=== PATIENT | male | born 1955 | race Caucasian/White ===

== ENCOUNTER 2018-04-27 18:43 | Emergency (ER) | payer MEDICAID, OTHER ==
[~2018-04-27] VITALS: Ht 182.9 cm; Wt 68.0 kg
--- NOTE | 2018-04-27 18:43 | NUR ---
PT BIBA TO BED 2 AT THIS TIME.
[2018-04-27 18:45] VITALS: BP 115/110
--- NOTE | 2018-04-27 18:50 | NUR ---
62 YO MALE BIB EMS FROM FIELD FOR URINARY RETENTION HAD PARK IN PLACE AND IT CAME OUT LAST NIGHT.PATIENT STATES PAIN OF 2/10 AT THIS TIME. PATIENT POSITIONED FOR COMFORT; HOB ELEVATED; BEDRAILS UP X2; BED DOWN. ER MD MADE AWARE OF PT STATUS.
--- NOTE | 2018-04-27 19:07 | NUR ---
ASSUMED CARE OF PT FROM SYD SPENCE
--- NOTE | 2018-04-27 19:09 | NUR ---
Pt report given to RONALDO VELARDE. Transfer of care at this time.
--- NOTE | 2018-04-27 19:16 | NUR ---
Dr. Bahena evaluating patient at bedside.
[2018-04-27] MEDS ORDERED: CIPROFLOXACIN 250 MG TAB PO ONE (19:20)
--- NOTE | 2018-04-27 19:39 | NUR ---
PT GIVEN LEG BAG FOR PARK. TOLERATED WELL.
[2018-04-27 19:40] VITALS: BP 109/95
== END 2018-04-27 19:40 | disposition home or self-care (01) ==
LOC: MED 18:43
DX: T83.098A Other mechanical complication of other urinary catheter, initial encounter (principal); N39.0 Urinary tract infection, site not specified; F17.210 Nicotine dependence, cigarettes, uncomplicated; Z87.442 Personal history of urinary calculi; Z88.0 Allergy status to penicillin; Z98.890 Other specified postprocedural states; Z59.0 Homelessness
CPT/HCPCS: 51702; 81002; 99284

== ENCOUNTER 2018-05-04 11:21 | Emergency (ER) | payer OTHER ==
[~2018-05-04] VITALS: Ht 182.9 cm; Wt 68.0 kg
[2018-05-04 11:26] VITALS: BP 146/112
--- NOTE | 2018-05-04 11:32 | NUR ---
PT AMBULATED TO ER BED 01
--- NOTE | 2018-05-04 11:35 | NUR ---
BIB SELF FOR URINARY CATHETER TO BE PUT BACK IN. PT STATES HE HAS A KIDNEY STONE BLOCKAGE AND NEEDS SURGERY BUT HASN'T GOT ONE YET. PT STATES HE WAS GOING UP THE STAIRS LAST NIGHT WHEN HIS PARK CATHETER WAS PULLED OUT. NO INJURY OR BLEEDING NOTED TO THE PENIS AT THIS TIME. DOCTOR AWARE OF PATIENT'S STATUS
--- NOTE | 2018-05-04 13:19 | NUR ---
Patient discharged with v/s stable. Written and verbal after care instructions given and explained. Patient verbalized understanding. Ambulatory with steady gait. All questions addressed prior to discharge. Advised to follow up with PMD.
== END 2018-05-04 13:19 | disposition home or self-care (01) ==
LOC: MED 11:21
DX: R33.9 Retention of urine, unspecified (principal); F17.200 Nicotine dependence, unspecified, uncomplicated; Z87.442 Personal history of urinary calculi; Z88.0 Allergy status to penicillin
CPT/HCPCS: 51702; 99284

== ENCOUNTER 2018-05-17 19:25 | Emergency (ER) | payer OTHER ==
[~2018-05-17] VITALS: Ht 182.9 cm; Wt 63.5 kg
[2018-05-17 20:30] VITALS: BP 134/111
--- NOTE | 2018-05-17 20:33 | NUR ---
PT AMBULATED TO LOBBY WITH VSS.
--- NOTE | 2018-05-17 20:51 | NUR ---
PT TO ER BED 11
--- NOTE | 2018-05-17 21:00 | NUR ---
PT TO ED WITH C/O URIANRY RETENTION. PREVIOUS HX OF PARK CATHETER INSERTION. MILD BLADDER DISTENTION NOTED. PT PLACED INTO BED, PREET FONSECA.
--- NOTE | 2018-05-17 21:25 | NUR ---
# 16 FR Sumner catheter with 10 ml utilizing sterile technique. Immediate return of 100 ml YELLOW urine noted. Bedside drainage bag placed below level of bladder. Urine sample collected and sent to lab. Pt tolerated procedure WELL.
[2018-05-17 22:47] VITALS: BP 128/99
--- NOTE | 2018-05-17 22:48 | NUR ---
Patient discharged with v/s stable. Written and verbal after care instructions given and explained. Patient alert, oriented and verbalized understanding of instructions. Ambulatory with steady gait. All questions addressed prior to discharge. ID band removed. Patient advised to follow up with PMD. Rx of MACROBID, IBUPROFEN given. Patient educated on indication of medication including possible reaction and side effects. Opportunity to ask questions provided and answered.
[2018-05-18 01:16] LABS: APPEARANCE,URINE CLOUDY (CLEAR); COLOR,URINE YELLOW (YELLOW)
[2018-05-18 01:17] LABS: BILIRUBIN,URINE NEGATIVE (NEGATIVE); BLOOD, URINE 3+ (NEGATIVE); LEUKOCYTE ESTERASE ,URINE 2+ (NEGATIVE); NITRITE, URINE POSITIVE (NEGATIVE); UGLUCOSE NEGATIVE (NEGATIVE)
[2018-05-18 01:18] LABS: RBC,URINE TOO NUMEROUS TO COUN /HPF (0-5); WBC,URINE TOO MANY TO COUNT /HPF (0-5)
== END 2018-05-17 22:48 | disposition home or self-care (01) ==
LOC: MED 19:25
DX: N39.0 Urinary tract infection, site not specified (principal); Z88.0 Allergy status to penicillin; Z87.442 Personal history of urinary calculi
CPT/HCPCS: 51702; 81001; 87086; 87186; 99284

== ENCOUNTER 2018-06-04 22:00 | Emergency (ER) | payer OTHER ==
[~2018-06-04] VITALS: Ht 182.9 cm; Wt 74.4 kg
[2018-06-04 22:20] VITALS: BP 146/109
--- NOTE | 2018-06-04 23:10 | NUR ---
PATIENT PRESENTS TO ED WITH URINARY RETENTION DUE TO HIS CATHETER PULLED OUT. DENIES N/V/D; SKIN IS PINK/WARM/DRY; AAOX4 WITH EVEN AND STEADY GAIT; LUNGS CLEAR BL; HR EVEN AND REGULAR; PT DENIES ANY FEVER, CP, SOB, OR COUGH AT THIS TIME; PATIENT STATES PAIN OF 10/10 AT THIS TIME; VSS; PATIENT POSITIONED FOR COMFORT; HOB ELEVATED; BEDRAILS UP X2; BED DOWN. ER MD MADE AWARE OF PT STATUS.
--- NOTE | 2018-06-04 23:19 | NUR ---
Sumner catheter inserted, steral technique applied.Patient discharged with v/s stable. Written and verbal after care instructions given and explained. Patient verbalized understanding. Ambulatory with steady gait. All questions addressed prior to discharge. Advised to follow up with PMD.
[2018-06-04 23:20] VITALS: BP 122/88
== END 2018-06-04 23:20 | disposition home or self-care (01) ==
LOC: MED 22:00
DX: T83.018A Breakdown (mechanical) of other urinary catheter, initial encounter (principal); F17.200 Nicotine dependence, unspecified, uncomplicated; Z88.0 Allergy status to penicillin; Z87.442 Personal history of urinary calculi; Y73.8 Miscellaneous gastroenterology and urology devices associated with adverse incidents, not elsewhere classified
CPT/HCPCS: 51702; 99284

== ENCOUNTER 2018-06-30 18:39 | Emergency (ER) | payer OTHER ==
[~2018-06-30] VITALS: Ht 182.9 cm; Wt 68.0 kg
[2018-06-30 18:50] VITALS: BP 151/95
--- NOTE | 2018-06-30 18:56 | NUR ---
PT ANB TO BED 6
--- NOTE | 2018-06-30 19:07 | NUR ---
63 YO M BIB SELF PRESENTS TO THE ED C/O URINARY RETENTION X 1 DAY. PT STATES HE HAS BEEN UNABLE TO VOID SINCE LAST NIGHT. PT REPORTS HE HAS NEEDED CATHETER INSERTION IN THE PAST FOR SAME ISSUE. PT REPORTS 10/10 SUPRAPUBIC DISCOMFORT. MILD BLADDER DISTENTION NOTED. SUPRAPUBIC TENDERNESS PRESENT. -- PMH: DENIES -- RX: DENIES PT CHANGED INTO GOWN AND POSITIONED FOR COMFORT. HOB ELEVATED. SIDE RAIL UP X1. BED IN LOWEST POSITION. VSS. NO APPARENT DISTRESS AT THIS TIME.
--- NOTE | 2018-06-30 20:07 | NUR ---
# 16 FR Sumner catheter with 10 ml utilizing sterile technique. Immediate return of 100 ml yellow, cloudy urine noted. Bedside drainage bag placed below level of bladder. Urine sample collected and sent to lab. Pt tolerated procedure well.
--- NOTE | 2018-06-30 20:16 | NUR ---
Dr. Sy evaluating patient at bedside.
[2018-06-30 20:36] LABS: APPEARANCE,URINE CLOUDY (CLEAR); BILIRUBIN,URINE NEGATIVE (NEGATIVE); BLOOD, URINE 3+ (NEGATIVE); COLOR,URINE YELLOW (YELLOW); LEUKOCYTE ESTERASE ,URINE 2+ (NEGATIVE); NITRITE, URINE NEGATIVE (NEGATIVE); UGLUCOSE NEGATIVE (NEGATIVE)
[2018-06-30 20:40] VITALS: BP 154/92
--- NOTE | 2018-06-30 20:40 | NUR ---
Patient discharged with v/s stable. Written and verbal after care instructions given and explained. Patient verbalized understanding. Ambulatory with steady gait. Trimble catheter draining, in place, transfered to leg bag. Teaching and demonstration provided for trimble care and leg bag. All questions addressed prior to discharge. Advised to follow up with PMD/Urologist.
[2018-06-30 20:44] LABS: WBC,URINE TOO MANY TO COUNT /HPF (0-5)
--- NOTE | 2018-07-03 17:27 | NUR ---
ADDENDUM: SPOKE TO PATIENTS SON([phone]) GAVE ME CELL # OF PATIENT TO BE REACHED. [phone]
--- NOTE | 2018-07-03 17:28 | NUR ---
ADDENDUM: URINE CULTURE RESULTS: E.COLI MDRO. REFERRED TO DR. CUNNINGHAM. CALLED PATIENT AND LEFT MESSAGE FOR NEW PRESCRIPTION/NEED PHARMACY INFO. SO CAN CALL IN PRESCRIPTION
--- NOTE | 2018-07-03 17:39 | NUR ---
ADDENDUM: LEFT MESSAGE TO PATIENT FOR NEW PRESCRIPTION. [phone]
--- NOTE | 2018-07-03 18:38 | NUR ---
ADDENDUM: LEFT MESSAGE . [phone]
== END 2018-06-30 20:40 | disposition home or self-care (01) ==
LOC: MED 18:39
DX: T83.098A Other mechanical complication of other urinary catheter, initial encounter (principal); R33.9 Retention of urine, unspecified; Z87.442 Personal history of urinary calculi; Z88.0 Allergy status to penicillin
CPT/HCPCS: 51702; 81001; 87086; 87186; 99284

== ENCOUNTER 2018-09-29 06:17 | Emergency (ER) | payer OTHER ==
[~2018-09-29] VITALS: Ht 182.9 cm; Wt 68.0 kg
[2018-09-29 06:21] VITALS: BP 141/107
--- NOTE | 2018-09-29 06:25 | NUR ---
PT AMBULATED TO BED 9.
--- NOTE | 2018-09-29 06:31 | NUR ---
63/M PRESENTS TO ED, C/O URINARY RETENTION, HAS ONLY BEEN ABLE TO URINATE VERY MINIMAL AMOUNT SINCE LAST NIGHT. REPORTS THAT PT'S INDWELLING PARK CATH FELL OFF LAST NIGHT. REPORTS CHRONIC PROBLEM SINCE DX KIDNEY STONES 01/2019. AOX4, SKIN NORMAL WARM AND DRY, RR EVEN AND UNLABORED, IN MODERATE AMOUNT OF DISTRESS WITH MILD RESTLESSNESS AND FACIAL GRIMACING. DR MACARIO MADE AWARE HX KIDNEY STONES; DENIES PROSTATE PROBLEM; DENIES RX OR OTC.
--- NOTE | 2018-09-29 06:40 | NUR ---
URI#16 FR Sumner catheter inserted utilizing sterile technique. Immediate return of 400ml cloudy yellow urine noted. Bedside drainage bag placed below level of bladder, replaced with leg bag. Urine sample collected, urine dip performed and shown to Dr Hong by EMT. Pt tolerated procedure.
--- NOTE | 2018-09-29 06:48 | NUR ---
DR MACARIO AT BEDSIDE
--- NOTE | 2018-09-29 07:00 | NUR ---
PT SENT HOME WITH PARK WITH LEG BAG WITH EDUCATION.
[2018-09-29 07:02] VITALS: BP 160/105
== END 2018-09-29 07:05 | disposition home or self-care (01) ==
LOC: MED 06:17
DX: T83.098A Other mechanical complication of other urinary catheter, initial encounter (principal); N39.0 Urinary tract infection, site not specified; F17.210 Nicotine dependence, cigarettes, uncomplicated; Z88.0 Allergy status to penicillin; Z87.442 Personal history of urinary calculi; Y84.6 Urinary catheterization as the cause of abnormal reaction of the patient, or of later complication, without mention of misadventure at the time of the procedure; Y92.89 Other specified places as the place of occurrence of the external cause
CPT/HCPCS: 51702; 81002; 99284; C1758

== ENCOUNTER 2018-10-08 08:08 | Emergency (ER) | payer OTHER ==
[~2018-10-08] VITALS: Ht 182.9 cm; Wt 68.0 kg
[2018-10-08 08:14] VITALS: BP 146/109
--- NOTE | 2018-10-08 08:21 | NUR ---
PT AMBULATED TO ER BED 09
--- NOTE | 2018-10-08 08:28 | NUR ---
PT CAME IN TO HAVE HIS PARK CATHETER REPLACED, STATES HIS CAME OUT LAST NIGHT. PT STATES HE HAS HAD AN INDWELLING CATHETER SINCE JANUARY 2018 BECAUSE OF KIDNEY STONES, AND HE IS SUPPOSED TO HAVE SURGERY TO RESOLVE THE ISSUE BUT HASNT YET. DENIES PAIN/N/V/FEVER. PT STATES HE IS UNABLE TO URINATE ON HIS OWN AT THIS TIME. BED IN LOW POSITION, SIDE RAIL UP X1. PENDING ERMD EVALUATION.
--- NOTE | 2018-10-08 08:50 | NUR ---
DR. BRENNAN AT BEDSIDE EVALUATING PT
--- NOTE | 2018-10-08 09:00 | NUR ---
# 16 FR Sumner catheter inserted utilizing sterile technique. Immediate return of 200 ml yellow urine noted. Leg bag applied and placed on L thigh, below level of bladder. Pt tolerated procedure well.
[2018-10-08 09:16] VITALS: BP 146/109
--- NOTE | 2018-10-08 09:17 | NUR ---
Patient discharged with v/s stable. Written and verbal after care instructions given and explained. Patient verbalized understanding. Ambulatory with steady gait. All questions addressed prior to discharge. Advised to follow up with PMD. APPLIED URINARY BAG TO PT L LEG
== END 2018-10-08 09:17 | disposition home or self-care (01) ==
LOC: MED 08:08
DX: T83.028A Displacement of other urinary catheter, initial encounter (principal); Z88.0 Allergy status to penicillin; Z87.442 Personal history of urinary calculi; Y83.8 Other surgical procedures as the cause of abnormal reaction of the patient, or of later complication, without mention of misadventure at the time of the procedure; Y92.89 Other specified places as the place of occurrence of the external cause
CPT/HCPCS: 51702; 99284

== ENCOUNTER 2018-10-25 06:57 | Emergency (ER) | payer OTHER ==
[~2018-10-25] VITALS: Ht 182.9 cm; Wt 72.8 kg
[2018-10-25 07:02] VITALS: BP 143/64
--- NOTE | 2018-10-25 07:12 | NUR ---
PT AMBULATED WITH STEADY GAIT TO BED 2.
--- NOTE | 2018-10-25 07:40 | NUR ---
63 y/o BIB by self c/o of dislodged trimble catheter and urinary retention. Denies pain and injury. PMH:urinary retention and kdiney stones Rx: none Allergies:Penicillin
[2018-10-25 08:20] VITALS: BP 143/64
--- NOTE | 2018-10-25 08:22 | NUR ---
Patient discharged with v/s stable. Written and verbal after care instructions given and explained. Patient alert, oriented and verbalized understanding of instructions. Ambulatory with steady gait. All questions addressed prior to discharge. ID band removed. Patient advised to follow up with PMD. Rx of NITROFURANTOIN 100MG given. Patient educated on indication of medication including possible reaction and side effects. Opportunity to ask questions provided and answered.
== END 2018-10-25 08:22 | disposition home or self-care (01) ==
LOC: MED 06:57
DX: T83.018A Breakdown (mechanical) of other urinary catheter, initial encounter (principal); N39.0 Urinary tract infection, site not specified; N40.0 Benign prostatic hyperplasia without lower urinary tract symptoms; N21.0 Calculus in bladder; R03.0 Elevated blood-pressure reading, without diagnosis of hypertension; F17.210 Nicotine dependence, cigarettes, uncomplicated; Z87.442 Personal history of urinary calculi; Z98.890 Other specified postprocedural states; Z88.0 Allergy status to penicillin; Y84.6 Urinary catheterization as the cause of abnormal reaction of the patient, or of later complication, without mention of misadventure at the time of the procedure; Y92.89 Other specified places as the place of occurrence of the external cause
CPT/HCPCS: 51702; 81002; 99284; C1758

== ENCOUNTER 2018-11-09 02:05 | Emergency (ER) | payer OTHER ==
[~2018-11-09] VITALS: Ht 182.9 cm; Wt 68.0 kg
[2018-11-09 02:05] VITALS: BP 139/120
--- NOTE | 2018-11-09 02:05 | NUR ---
Pt ambulted from [facility] to bed 9.
--- NOTE | 2018-11-09 02:07 | NUR ---
PT BIBA C/O PARK CATHETER DISLODGEMENT AROUND 1500. PER PT HE HAS PARK CATHETER IN PLACE D/T BLADDER STONE THAT REQUIRES SURGERY. PT AWAKE AND ALERT. VSS. PAIN LEVEL 9/10, ACHING. PT UNABLE TO URINATE. ALLERGY: PENICILLIN. MED HX: BLADDER STONE. SAFETY MEASURES IN PLACE. WAITING FOR ERMD TO EVALUATE PT.
--- NOTE | 2018-11-09 02:30 | NUR ---
PT PARK CATHETER 16FR INSERTED. 10ML INSERTED IN BALLOON. TOLERATED PROCEDURE WELL. Addendum: 11/09/18 at 0308 by [email or web address] PT PARK CATHETER 16FR INSERTED. 10ML INSERTED IN BALLOON. TOLERATED PROCEDURE WELL. LEG BAG PROVIDED PER PT REQUEST.
--- NOTE | 2018-11-09 02:41 | NUR ---
Dr. Hong examining patient.
[2018-11-09 02:55] VITALS: BP 139/120
--- NOTE | 2018-11-09 02:55 | NUR ---
Patient discharged with v/s stable. Written and verbal after care instructions given and explained. Patient alert, oriented and verbalized understanding of instructions. Ambulatory with steady gait. All questions addressed prior to discharge. ID band removed. Patient advised to follow up with PMD. Rx of CIPRO WAS given. Patient educated on indication of medication including possible reaction and side effects. Opportunity to ask questions provided and answered.
== END 2018-11-09 02:55 | disposition home or self-care (01) ==
LOC: MED 02:05
DX: R33.9 Retention of urine, unspecified (principal); N39.0 Urinary tract infection, site not specified; Z88.0 Allergy status to penicillin; Z87.442 Personal history of urinary calculi
CPT/HCPCS: 51702; 81002; 87086; 99284; C1758

== ENCOUNTER 2019-11-03 19:10 | Emergency (ER) | payer OTHER ==
[~2019-11-03] VITALS: Ht 170.2 cm; Wt 77.1 kg
[2019-11-03 19:33] VITALS: BP 124/68
--- NOTE | 2019-11-03 19:33 | NUR ---
PT BIBA ALS FOR S/O DOG BITE X 2 HOURS AGO. BITES NOTED ON R FA AND BILAT LEGS NOTED. BLEEDING CONTROLLED. EDEMA NOTED. NO OBVIOUS DEFORMITY NOTED. A&O X4. PT UNABLE TO AMBULATE. VSS. HEART SOUND S1S2 PRESENT. ALLERGIES: PENICILLIN PMH: DENIES
--- NOTE | 2019-11-03 19:33 | NUR ---
ANIMAL FILLED OUT AND FAXED.
--- NOTE | 2019-11-03 19:36 | NUR ---
PT WOUNDS BEING CLEANED ON EMS GURNEY. WILL BE SENT TO LOBBY AFTER. FENTANYL 100MG IN GIVEN PRIOR TO ARRIVAL. VSS.
--- NOTE | 2019-11-03 19:43 | NUR ---
PT TAKEN TO BED 4.
[2019-11-03] MEDS ORDERED: ONDANSETRON 4 MG ODT PO ONE (20:00)
[2019-11-03] MEDS ORDERED: HYDROcodone/APAP 7.5/325 MG 1 TAB PO ONE (20:00)
[2019-11-03] MEDS ORDERED: LIDOCAINE MPF 1% 10 MG/ML VIAL INJ ONE (20:00)
[2019-11-03] MEDS ORDERED: BACITRACIN OINT 500 UNITS/GM PKT TP ONE ×4 (20:00→22:30)
--- NOTE | 2019-11-03 20:14 | NUR ---
XRAY AT BEDSIDE.
--- NOTE | 2019-11-03 20:15 | NUR ---
XR AT BEDSIDE.
--- NOTE | 2019-11-03 21:02 | NUR ---
XUAN CUELLAR AT BEDSIDE. ALCON AT BEDSIDE.
[2019-11-03] MEDS ORDERED: LIDOCAINE MPF 1% 5 ML ONE (21:11)
--- NOTE | 2019-11-03 21:12 | NUR ---
XUAN GERMAN ADMINISTRATING LIDOCAINE 1% FOR BEDISDE PROCEDURE.
[2019-11-03] MEDS ORDERED: CLINDAMYCIN 600 MG/4 ML VIAL IM ONE (21:15)
[2019-11-03] MEDS ORDERED: SULFAMETH/TRIMETH DS 800/160MG 1 TAB PO ONE (21:15)
--- NOTE | 2019-11-03 22:39 | NUR ---
CLEANED AND IRAGATED PT'S WOUNDS ON RIGHT FA A/P, LEFT LOWER LEG/ RIGHT LOWER LEG WITH BETADINE AND NS. AFTER PT'S WOUND'S WERE CLEANED AND IRAGATED PA CLOSED UP WOUNDS WITH SUTURES. I THEN APPLIED BACITRACIN AND NON-ADH BANDAGES TO PT'S WOUND'D AND THEN WRAP WITH COBAND BANDAGE. PMSC'S WERE CHECKED BEFORE AND AFTER WITHOUT INCIDENT.
--- NOTE | 2019-11-03 22:47 | NUR ---
Patient discharged with v/s stable. Written and verbal after care instructions given and explained. Patient alert, oriented and verbalized understanding of instructions. Ambulatory with steady gait. All questions addressed prior to discharge. ID band removed. Patient advised to follow up with PMD. Rx of TRAMADOL, MOTRIN, BACTRIM, CLINDAMYCIN given. Patient educated on indication of medication including possible reaction and side effects. Opportunity to ask questions provided and answered.
[2019-11-03 22:49] VITALS: BP 131/74
--- NOTE | 2019-11-03 23:06 | NUR ---
FAXED DOG BITE REPORT TO ANIMAL CONTROL. PROOF OF FAX CONFIRMATION RECIVED @ [id number]
== END 2019-11-03 22:47 | disposition home or self-care (01) ==
LOC: MED 19:10
DX: S50.12XA Contusion of left forearm, initial encounter (principal); S50.11XA Contusion of right forearm, initial encounter; S81.802A Unspecified open wound, left lower leg, initial encounter; S81.801A Unspecified open wound, right lower leg, initial encounter; N20.0 Calculus of kidney; Z88.0 Allergy status to penicillin; W54.0XXA Bitten by dog, initial encounter; Y93.9 Activity, unspecified; Y92.89 Other specified places as the place of occurrence of the external cause; Y99.8 Other external cause status
CPT/HCPCS: 12002; 73090; 73130; 90471; 90715; 96372; 99284; J2001; J3490; Q0162; Q0092

== ENCOUNTER 2019-11-07 08:23 | Emergency (ER) | payer OTHER ==
[~2019-11-07] VITALS: Ht 182.9 cm; Wt 68.0 kg
--- NOTE | 2019-11-07 08:26 | NUR ---
PT AMBULATED TO ER BED 12
[2019-11-07 08:29] VITALS: BP 150/99
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
[2019-11-07 09:21] VITALS: BP 143/87
--- NOTE | 2019-11-07 09:21 | NUR ---
Patient discharged with v/s stable. Written and verbal after care instructions given and explained. Patient verbalized understanding. Ambulatory with steady gait. All questions addressed prior to discharge. Advised to follow up with PMD. pt given bus pass. instructed to change dressing daily. pt given supplies for dressing change.
== END 2019-11-07 09:21 | disposition home or self-care (01) ==
LOC: MED 08:23
DX: S51.851D Open bite of right forearm, subsequent encounter (principal); S81.852D Open bite, left lower leg, subsequent encounter; S81.851D Open bite, right lower leg, subsequent encounter; F17.200 Nicotine dependence, unspecified, uncomplicated; Z87.442 Personal history of urinary calculi; Z88.0 Allergy status to penicillin; Z71.6 Tobacco abuse counseling; W54.0XXD Bitten by dog, subsequent encounter
CPT/HCPCS: 99281

== ENCOUNTER 2020-08-27 08:33 | Emergency (ER) | payer OTHER ==
[~2020-08-27] VITALS: Ht 182.9 cm; Wt 68.0 kg
[2020-08-27 08:35] VITALS: BP 170/108
[2020-08-27 09:20] LABS: APPEARANCE,URINE CLOUDY (CLEAR); BILIRUBIN,URINE NEGATIVE (NEGATIVE); BLOOD, URINE 3+ (NEGATIVE); COLOR,URINE YELLOW (YELLOW); LEUKOCYTE ESTERASE ,URINE 3+ (NEGATIVE); NITRITE, URINE NEGATIVE (NEGATIVE); PH,URINE 8.5 (5.0-9.0); UGLUCOSE NEGATIVE (NEGATIVE)
[2020-08-27 09:28] LABS: WBC,URINE 16-25 (MOD) /HPF (0-5)
[2020-08-27] MEDS ORDERED: SULF-58 PO (09:51)
[2020-08-27 10:01] VITALS: BP 170/108
== END 2020-08-27 10:03 | disposition home or self-care (01) ==
LOC: MED 08:33
DX: N39.0 Urinary tract infection, site not specified (principal); R33.9 Retention of urine, unspecified; F17.290 Nicotine dependence, other tobacco product, uncomplicated; R03.0 Elevated blood-pressure reading, without diagnosis of hypertension; Z71.6 Tobacco abuse counseling; Z88.0 Allergy status to penicillin; Z79.899 Other long term (current) drug therapy; Z87.442 Personal history of urinary calculi; Z98.890 Other specified postprocedural states
CPT/HCPCS: 51702; 81001; 87086; 99284

== ENCOUNTER 2020-08-31 01:04 | Emergency (ER) | payer OTHER ==
[~2020-08-31] VITALS: Ht 182.9 cm; Wt 68.0 kg
[~2020-08-31 01:04] MED LIST: SULF-58 PO
[2020-08-31 01:09] VITALS: BP 151/91
--- NOTE | 2020-08-31 01:18 | NUR ---
AMBULATED TO BED 4
--- NOTE | 2020-08-31 01:30 | NUR ---
PT. STATES THAT F/C DEFLATED LAST NIGHT AND HAS NOT BEEN ABLE TO PEE. HAD THE CATHETER ON WEDNESDAY OR WEDNESDAY DUE TO HAVING "PING PONG BALL SIZE KIDNEY STONE." AAOx4. VSS. PMH: KIDNEY STONES, SURGER OF THE LEFT LEG ALLERGIES: PENICILLNS
--- NOTE | 2020-08-31 02:14 | NUR ---
On lunch. Report given to marshall Morejon RN and SYD Larkin for continuity of care.
--- NOTE | 2020-08-31 02:40 | NUR ---
16 fr F/C INSERYTED WITHOUT DIFFICULTY WITH IMMEDIATE RETURN TRAVIS COLORED URINE.
--- NOTE | 2020-08-31 03:41 | NUR ---
Patient discharged with v/s stable. Written and verbal after care instructions given and explained. Patient verbalized understanding. Ambulatory with steady gait. ID band removed. All questions addressed prior to discharge. Advised to follow up with PMD.
[2020-08-31 03:52] VITALS: BP 137/104
== END 2020-08-31 03:41 | disposition home or self-care (01) ==
LOC: MED 01:04
DX: R33.9 Retention of urine, unspecified (principal); Z79.899 Other long term (current) drug therapy; Z88.0 Allergy status to penicillin; Z87.442 Personal history of urinary calculi
CPT/HCPCS: 51702; 99284

== ENCOUNTER 2020-09-08 09:55 | Emergency (ER) | payer OTHER ==
[~2020-09-08] VITALS: Ht 182.9 cm; Wt 68.0 kg
[2020-09-08 09:59] VITALS: BP 139/106
[2020-09-08 11:02] VITALS: BP 139/106
== END 2020-09-08 11:03 | disposition home or self-care (01) ==
LOC: MED 09:55
DX: R33.9 Retention of urine, unspecified (principal); F17.200 Nicotine dependence, unspecified, uncomplicated; Z46.6 Encounter for fitting and adjustment of urinary device; Z79.899 Other long term (current) drug therapy; Z87.442 Personal history of urinary calculi; Z88.0 Allergy status to penicillin
CPT/HCPCS: 51702; 99284

== ENCOUNTER 2020-09-15 20:11 | Emergency (ER) | payer OTHER ==
[~2020-09-15] VITALS: Ht 182.9 cm; Wt 68.0 kg
[2020-09-15 20:11] VITALS: BP 138/85
--- NOTE | 2020-09-15 20:11 | NUR ---
PT NOÉ POST. TAKEN TO BED 12
--- NOTE | 2020-09-15 20:12 | NUR ---
65 y/o male biba c/o painful urination s/p trimble catheter falling out. Pt states he had a trimble catheter placed at [facility] x 1 week ago d/t stones in bladder. Pt states he is suppose to keep trimble in until his surgery at the end of this month. Pt is unsure how trimble fell out but now he had pain while trying to urinate. Pt states its more of a dribble. Pt denies hematuria and any trauma to genital area. Pt resting in bed, locked and in lowest position, HOB elevated, side rail x 1. VSS. No acute distress noted. pmh: bladder in stones ax: PCN
--- NOTE | 2020-09-15 21:15 | NUR ---
# 16 FR Sumner catheter with 10 ml utilizing sterile technique. Immediate return of 200 ml yellow urine noted. Bedside drainage bag placed below level of bladder. Patient's bag changed to leg back. Urine sample collected and sent to lab. Pt tolerated procedure well.
--- NOTE | 2020-09-15 22:03 | NUR ---
Patient discharged with v/s stable. Written and verbal after care instructions given and explained. Patient verbalized understanding. Ambulatory with steady gait. All questions addressed prior to discharge. Advised to follow up with PMD. Patient provided w/ sandwich and drinks.
[2020-09-15 22:04] VITALS: BP 153/103
== END 2020-09-15 22:03 | disposition home or self-care (01) ==
LOC: MED 20:11
DX: T83.098A Other mechanical complication of other urinary catheter, initial encounter (principal); Z88.0 Allergy status to penicillin; Z87.442 Personal history of urinary calculi
CPT/HCPCS: 51702; 99284

== ENCOUNTER 2020-09-19 22:09 | Emergency (ER) | payer OTHER ==
[~2020-09-19] VITALS: Ht 182.9 cm; Wt 68.0 kg
[2020-09-19 22:16] VITALS: BP 151/84
== END 2020-09-19 23:50 | disposition home or self-care (01) ==
LOC: MED 22:09
DX: T83.098A Other mechanical complication of other urinary catheter, initial encounter (principal); R33.9 Retention of urine, unspecified; Z88.0 Allergy status to penicillin; Z87.442 Personal history of urinary calculi
CPT/HCPCS: 51702; 99284

== ENCOUNTER 2020-09-30 09:09 | Emergency (ER) | payer OTHER ==
[~2020-09-30] VITALS: Ht 182.9 cm; Wt 71.7 kg
[2020-09-30 09:22] VITALS: BP 153/102
--- NOTE | 2020-09-30 09:29 | NUR ---
Patient ambulated to bed 03 with steady/even gait.
[2020-09-30 10:11] VITALS: BP 153/102
== END 2020-09-30 10:12 | disposition home or self-care (01) ==
LOC: MED 09:09
DX: N21.0 Calculus in bladder (principal); Z46.6 Encounter for fitting and adjustment of urinary device; Z88.0 Allergy status to penicillin; Z79.899 Other long term (current) drug therapy; Z98.890 Other specified postprocedural states; Z87.442 Personal history of urinary calculi
CPT/HCPCS: 51702; 99284

== ENCOUNTER 2020-10-18 11:08 | Emergency (ER) | payer OTHER ==
[~2020-10-18] VITALS: Ht 182.9 cm; Wt 69.9 kg
[2020-10-18 11:14] VITALS: BP 155/96
--- NOTE | 2020-10-18 11:17 | NUR ---
pt ambulated to bed 06.
--- NOTE | 2020-10-18 11:23 | NUR ---
65 Y/O M BIB SELF, HOMELESS, PT WAS SLEEPING LAST NIGHT AND URINE CATH WAS REMOVED. 5/10 BLADDER PAIN, INCREASES WITH NEED TO URINATE, UNABLE TO URINATE. PT WAS TO SEE SPECIALIST BUT DOES NOT HAVE TRANSPORTATION. PMH: BLADDER STONES ALLERGY: PENICILLIN Addendum: 10/18/20 at 1127 by [email or web address] A&OX4. EQUAL CHEST RISE AND FALL NOTED. NO LABORED BREATHING NOTED. BED IN LOWEST POSITION. SIDERAIL X1 UP.
--- NOTE | 2020-10-18 12:31 | NUR ---
CALLED [facility] TO GET BUS PASS FOR PT
--- NOTE | 2020-10-18 12:41 | NUR ---
PT PROVIDED WITH FOOD AND X2 BUS PASSES
[2020-10-18 12:48] VITALS: BP 155/96
--- NOTE | 2020-10-18 12:48 | NUR ---
Patient discharged with v/s stable. Written and verbal after care instructions ABOUT INDWELLING URINARY CATH given and explained. Patient verbalized understanding. Ambulatory with steady gait. All questions addressed prior to discharge. Advised to follow up with PMD.
== END 2020-10-18 12:48 | disposition home or self-care (01) ==
LOC: MED 11:08
DX: T83.028A Displacement of other urinary catheter, initial encounter (principal); Z87.442 Personal history of urinary calculi; Z88.0 Allergy status to penicillin
CPT/HCPCS: 51702; 99284

== ENCOUNTER 2020-11-17 01:09 | Emergency (ER) | payer OTHER ==
[~2020-11-17] VITALS: Ht 182.9 cm; Wt 68.0 kg
[2020-11-17 01:10] VITALS: BP 142/85
--- NOTE | 2020-11-17 01:10 | NUR ---
NOÉ. TAKEN TO BED #3
--- NOTE | 2020-11-17 01:15 | NUR ---
Removed fc that was present upon arrival and replaced with new one.
--- NOTE | 2020-11-17 01:15 | NUR ---
PATIENT BIBA FROM HOME FOR C/O URINARY RETENTION D/T FC MALFUNCTION. PER PATIENT HAS HAD A F/C IN [facility] X 1 MONTH BECAUSE HE HAS A SCHEDULED SURGERY FOR BLADDER STONES IN 2 WEEKS. PATIENT STATES PAIN 10/10 IN BLADDER BEGAN 1 HOUR AGO AND HE BLIVES IT IS NO LONGER DRAINING. PATIENT DIAPHORETIC AND TACHY. MEDHX: KIDNEY STONES, BLADDER STONES ALLERGIES: PENICILLIN
--- NOTE | 2020-11-17 01:20 | NUR ---
# 16 FR Sumner catheter with 10 ml utilizing sterile technique. Immediate return of 300 ml jackie urine noted. Bedside drainage bag placed below level of bladder. Urine sample collected and sent to lab. Pt tolerated procedure well.
--- NOTE | 2020-11-17 01:22 | NUR ---
Dr. Yap at bedside for evaluation
[2020-11-17] MEDS ORDERED: HYDROcodone/APAP 10/325 MG 1 TAB TAB PO ONE (01:25)
[2020-11-17] MEDS ORDERED: HYDROcodone/APAP 10/325 MG 1 TAB TAB ONE (01:26)
[2020-11-17 01:35] LABS: BILIRUBIN,URINE NEGATIVE (NEGATIVE); BLOOD, URINE 3+ (NEGATIVE); COLOR,URINE YELLOW (YELLOW); LEUKOCYTE ESTERASE ,URINE 2+ (NEGATIVE); NITRITE, URINE NEGATIVE (NEGATIVE); PH,URINE 7.5 (5.0-9.0); UGLUCOSE NEGATIVE (NEGATIVE)
[2020-11-17 01:44] LABS: APPEARANCE,URINE CLOUDY (CLEAR)
[2020-11-17 01:46] LABS: RBC,URINE >100 /HPF (0-5)
[2020-11-17 01:47] LABS: WBC,URINE 60-80 /HPF (0-5)
[2020-11-17] MEDS ORDERED: SULFAMETH/TRIMETH DS 800/160MG 1 TAB PO ONE (01:55)
[2020-11-17] MEDS ORDERED: SULF-59 PO (02:02)
[2020-11-17 02:27] VITALS: BP 132/78
== END 2020-11-17 02:27 | disposition home or self-care (01) ==
LOC: MED 01:09
DX: T83.091A Other mechanical complication of indwelling urethral catheter, initial encounter (principal); N30.90 Cystitis, unspecified without hematuria; F17.290 Nicotine dependence, other tobacco product, uncomplicated; Y84.6 Urinary catheterization as the cause of abnormal reaction of the patient, or of later complication, without mention of misadventure at the time of the procedure
CPT/HCPCS: 51702; 81001; 99284

== ENCOUNTER 2020-11-21 20:32 | Emergency (ER) | payer OTHER ==
[~2020-11-21] VITALS: Ht 182.9 cm; Wt 68.0 kg
[~2020-11-21 20:32] MED LIST changes: +SULF-59 PO
[2020-11-21 20:45] VITALS: BP 142/90
--- NOTE | 2020-11-21 20:48 | NUR ---
TO LOBBY A/W BED AMBULATORY
--- NOTE | 2020-11-21 22:30 | NUR ---
PARK CATHETER WITH LEG BAG ATTACHED INSERTED. IMMEDIATE RETURN OF 200 CC OF CLEAR, YELLOW URINE NOTED.
--- NOTE | 2020-11-21 22:30 | NUR ---
PT BIB SELF FOR C/C EXISTING PARK FELL OUT X 2 HOURS AGO. REPORTING RETENTION WITH PELVIC PAIN D/T NEED FOR RELIEF. DENIES N/V/D, FEVER, CHILLS, CP OR SOB. MED HX: RENAL STONES ALLERGIES: PENICILLINS.
[2020-11-21 23:50] VITALS: BP 142/90
== END 2020-11-21 23:50 | disposition home or self-care (01) ==
LOC: MED 20:32
DX: R33.9 Retention of urine, unspecified (principal); Z46.6 Encounter for fitting and adjustment of urinary device; Z88.0 Allergy status to penicillin; Z79.899 Other long term (current) drug therapy; Z87.442 Personal history of urinary calculi
CPT/HCPCS: 51702; 99284

== ENCOUNTER 2020-12-25 18:02 | Emergency (ER) | payer OTHER ==
[~2020-12-25] VITALS: Ht 182.9 cm; Wt 68.0 kg
[2020-12-25 18:07] VITALS: BP 150/111
--- NOTE | 2020-12-25 18:21 | NUR ---
65 YO MALE BIBA FROM [employer] P[facility]ING LOT PT IS HOMELESS, C/O 5/10 ABDOMINAL PAIN X1HR, URINE CATHETER CAME OUT, CANNOT URINATE. A&OX4, PLACED IN GOWN. PMH: HTN, KIDNEY STONES ALLERGIES: PCN
--- NOTE | 2020-12-25 19:27 | NUR ---
REPORT AND CONTINUATION OF CARE GIVEN TO SYD WORKMAN.
--- NOTE | 2020-12-25 19:40 | NUR ---
INDWELLING PARK CATH INSERTED AT THIS TIME.
[2020-12-25 19:41] VITALS: BP 157/79
--- NOTE | 2020-12-25 21:21 | NUR ---
[PATIENT CLEARED FOR DISCHARGE. PROVIDED A BUS PASS AND LEG BAG PLACED. PATIENT HAS NO FURTHER QUESTIOSN.
== END 2020-12-25 21:21 | disposition home or self-care (01) ==
LOC: MED 18:02
DX: R10.9 Unspecified abdominal pain (principal)
CPT/HCPCS: 51702; 99284

== ENCOUNTER 2021-01-21 10:15 | Emergency (ER) | payer OTHER ==
[~2021-01-21] VITALS: Ht 182.9 cm; Wt 68.0 kg
[2021-01-21 10:17] VITALS: BP 159/109
--- NOTE | 2021-01-21 10:26 | NUR ---
PATIENT AMBULATED TO BED 3.
--- NOTE | 2021-01-21 11:10 | NUR ---
65YO M BIB SELF DUE TO DISLODGED CATHETER 3 HOURS AGO. REPORTS DYSURIA, PAIN 10/10, SHARP. PATIENT DENIES N/V/D AND FEVER. DENIES HEMATURIA. IN ED, PT AOX4. WITH HYPOGASTRIC TENDERNESS UPON PALPATION. NORMOACTIVE BOWEL SOUNDS. PT POSITIONED COMFORTABLY IN BED WITH 2 SIDERAILS UP. ERMD MADE AWARE OF PT STATUS. HX: SURGERY IN L KNEE ALLERGIES: PENICILLIN
[2021-01-21] MEDS ORDERED: SULF-59 PO (11:51)
[2021-01-21 12:25] VITALS: BP 159/109
== END 2021-01-21 12:27 | disposition home or self-care (01) ==
LOC: MED 10:15
DX: R33.9 Retention of urine, unspecified (principal); N21.0 Calculus in bladder; F17.290 Nicotine dependence, other tobacco product, uncomplicated; N39.0 Urinary tract infection, site not specified; I10 Essential (primary) hypertension; Z87.442 Personal history of urinary calculi; Z88.0 Allergy status to penicillin; Z79.899 Other long term (current) drug therapy; Z98.890 Other specified postprocedural states
CPT/HCPCS: 51702; 81002; 99284

== ENCOUNTER 2021-04-02 05:25 | Emergency (ER) | payer OTHER ==
[~2021-04-02] VITALS: Ht 182.9 cm; Wt 68.0 kg
[2021-04-02 05:32] VITALS: BP 147/115
--- NOTE | 2021-04-02 05:35 | NUR ---
to lobby a/w bed ambulatory
--- NOTE | 2021-04-02 06:15 | NUR ---
seen and examined by EVERARDO
--- NOTE | 2021-04-02 07:10 | NUR ---
BIBA FOR CLOGGED PARK CATH AND BLADDER PAIN SINCE THIS MORNING.
[2021-04-02] MEDS ORDERED: CIPR500T4 PO (08:14)
[2021-04-02 09:10] VITALS: BP 180/100
--- NOTE | 2021-04-02 09:10 | NUR ---
Patient discharged with BP180/110. DENIES BISHOP OR DIZZINESS.MD MADE AWARE. DC WITHOUT SIGNING DC PAPER. verbal after care instructions given and explained. Patient alert, oriented and verbalized understanding of instructions. Ambulatory with steady gait. All questions addressed prior to discharge. Patient advised to follow up with PMD. Rx of CIPRO given. Patient educated on indication of medication including possible reaction and side effects. Opportunity to ask questions provided and answered.
== END 2021-04-02 09:10 | disposition home or self-care (01) ==
LOC: MED 05:25
DX: T83.091A Other mechanical complication of indwelling urethral catheter, initial encounter (principal); N39.0 Urinary tract infection, site not specified; I10 Essential (primary) hypertension; F17.200 Nicotine dependence, unspecified, uncomplicated; Z87.442 Personal history of urinary calculi; Z88.0 Allergy status to penicillin; Z79.899 Other long term (current) drug therapy; Z98.890 Other specified postprocedural states; Y73.8 Miscellaneous gastroenterology and urology devices associated with adverse incidents, not elsewhere classified
CPT/HCPCS: 51702; 81002; 99284

== ENCOUNTER 2021-05-01 07:00 | Emergency (ER) | payer OTHER ==
[~2021-05-01] VITALS: Ht 182.9 cm; Wt 70.3 kg
[2021-05-01 07:00] VITALS: BP 141/86
[~2021-05-01 07:00] MED LIST changes: +CIPR500T4 PO
--- NOTE | 2021-05-01 07:05 | NUR ---
PT NOÉ POST. TAKEN TO BED 11
--- NOTE | 2021-05-01 07:15 | NUR ---
dr. corley bedside evaluating pt
--- NOTE | 2021-05-01 07:15 | NUR ---
Oli moscoso in [facility] - 05/01/21 at [email or web address] DIMAS BEDSIDE EVALUATING PT
--- NOTE | 2021-05-01 07:30 | NUR ---
18G IV ESTABLISHED IN R AC AND BLOODWORK COLLECTED
--- NOTE | 2021-05-01 07:48 | NUR ---
xray at patient bedside
--- NOTE | 2021-05-01 07:48 | NUR ---
BLOODWORK COLLECTED AND TEODORO HUBBARD COLLECTED. BOTH WALKED TO LAB
--- NOTE | 2021-05-01 07:51 | NUR ---
URINE COLLECTED AND WALKED OVER TO LAB
--- NOTE | 2021-05-01 08:05 | NUR ---
65Y MALE BIBA DUE TO SOB X1 DAY AND URINARY RETENTION. PATIENT STATED HE HAS EXPERINCED SPURTS OF SOB SINCE YESTERADY. PT DENIES ANY CHEST PAIN, BUT STATED "HE FEELS LIKE HE CANNOT TAKE A DEEP BREATH." WHEEZING NOTED ON BILATERAL UPPER LOBES, BUT CLEAR IN BASES. PATIENT CURRENTLY AT 97% ON RA. PT ALSO HAS C/O OF URINARY RETENTION AND REQUESTED FOR PARK TO BE REPLACED. PT DENIES N/V, FEVER/CHILLS. PMH: HTN, BLADDER/KIDNEY STONES NKA
--- NOTE | 2021-05-01 08:06 | NUR ---
# 18 FR Sumner catheter with 10 ml utilizing sterile technique. Immediate return of 10 ml YELLOW urine noted. Bedside drainage bag placed below level of bladder. Urine sample collected and sent to lab. Pt tolerated procedure WELL.
--- NOTE | 2021-05-01 08:25 | NUR ---
RT AT PATIENT BEDSIDE COLLECTING ABG
[2021-05-01 08:49] LABS: BASOPHILS # (AUTO) 0.1 K/uL (0.00-0.22); BASOPHILS % (AUTO) 1.4 % (0.0-2.0); EOSINOPHILS # (AUTO) 0.2 K/uL (0-0.4); HEMATOCRIT 41.2 % (36-52); HEMOGLOBIN 13.8 g/dL (12.0-18.0); MEAN CORPUSCULAR HEMOGLOBIN 31 pg (27-31); MEAN CORPUSCULAR HGB CONC 34 g/dL (33-37); MONOCYTES # (AUTO) 0.5 K/uL (0.8-1.0); MONOCYTES % (AUTO) 7.1 % (1.7-9.3); NEUTROPHILS # (AUTO) 5.2 K/uL (1.8-7.7); NEUTROPHILS % (AUTO) 74.5 % (42.2-75.2); PLATELET COUNT (AUTO) 385 K/uL (140-450); RED BLOOD CELL COUNT(AUTO) 4.47 MIL/uL (4.20-6.10); RED CELL DISTRIBUTION WIDTH 14.8 % (11.6-13.7)
[2021-05-01 09:17] LABS: ALBUMIN 3.7 g/dL (3.4-5.0); ANION GAP 13.5 (8-16); CARBON DIOXIDE 24.8 mmol/L (21-32); CREATININE 2.1 mg/dL (0.6-1.3); POTASSIUM 4.3 mmol/L (3.5-5.1); TOTAL BILIRUBIN 0.5 mg/dL (0.0-1.0)
[2021-05-01 09:27] LABS: APPEARANCE,URINE CLEAR (CLEAR); BILIRUBIN,URINE NEGATIVE (NEGATIVE); BLOOD, URINE 2+ (NEGATIVE); COLOR,URINE YELLOW (YELLOW); LEUKOCYTE ESTERASE ,URINE 2+ (NEGATIVE); NITRITE, URINE POSITIVE (NEGATIVE); PH,URINE 7.5 (5.0-9.0); UGLUCOSE NEGATIVE (NEGATIVE)
[2021-05-01] MEDS ORDERED: ALBU0.0912 IH (09:46)
[2021-05-01] MEDS ORDERED: NITR100C7 PO (09:46)
--- NOTE | 2021-05-01 09:47 | NUR ---
Patient appears to be resting comfortably in bed. Vital Signs within normal limits. Respirations even and unlabored.
--- NOTE | 2021-05-01 09:55 | NUR ---
REQUESTED BUS PASS FOR PATIENT
[2021-05-01 10:03] LABS: CALCIUM OXALATE CRYSTALS,UR None Seen /HPF (None Seen); COARSE GRANULAR CASTS,URINE None Seen /LPF (None Seen); FINE GRANULAR CASTS,URINE None Seen /LPF (None Seen); HYALINE CASTS, URINE None Seen /LPF (None Seen); OTHER CASTS, URINE None Seen /LPF (None Seen); OTHER CRYSTALS,URINE None Seen /HPF (None Seen); RED BLOOD CELL CASTS,URINE None Seen /LPF (None Seen); TRICHOMONAS,URINE None Seen /HPF (None Seen); TRIPLE PHOSPHATE CRYSTAL,UR None Seen /HPF (None Seen); URIC ACID CRYSTALS,URINE None Seen /HPF (None Seen); URINE AMORPHOUS URATE None Seen /HPF (None Seen); WAXY CASTS,URINE None Seen /LPF (None Seen); YEAST,URINE None Seen /HPF (None Seen)
[2021-05-01 10:28] VITALS: BP 144/104
--- NOTE | 2021-05-01 10:29 | NUR ---
Patient discharged with v/s stable. Written and verbal after care instructions given and explained. Patient alert, oriented and verbalized understanding of instructions. Ambulatory with steady gait. All questions addressed prior to discharge. ID band removed. Patient advised to follow up with PMD. Rx of ALBUTEROL AND MACROBID given. Patient educated on indication of medication including possible reaction and side effects. Opportunity to ask questions provided and answered. PT PROVIDED WITH BUS PASS, HOMELESS RESOURCE PACKET, AND FOOD
== END 2021-05-01 10:28 | disposition home or self-care (01) ==
LOC: MED 07:00
DX: J44.1 Chronic obstructive pulmonary disease with (acute) exacerbation (principal); Z20.822 Contact with and (suspected) exposure to COVID-19; N39.0 Urinary tract infection, site not specified; I10 Essential (primary) hypertension; Z88.0 Allergy status to penicillin; Z79.899 Other long term (current) drug therapy; Z87.442 Personal history of urinary calculi
CPT/HCPCS: 36600; 51702; 71045; 80053; 81001; 82803; 83605; 83874; 83880; 84484; 85025; 87040; 87086; 87426; 99285; Q0092

== ENCOUNTER 2021-06-06 21:31 | Emergency (ER) | payer OTHER ==
[~2021-06-06] VITALS: Ht 182.9 cm; Wt 70.3 kg
[~2021-06-06 21:31] MED LIST changes: +ALBU0.0912 IH; +NITR100C7 PO
[2021-06-06 21:44] VITALS: BP 160/112
[2021-06-06] MEDS ORDERED: ONDANSETRON 4 MG/2 ML VIAL IM SCH (22:35)
[2021-06-06] MEDS ORDERED: MORPHINE SULFATE 4 MG/ML SYR IVP SCH (22:35)
[2021-06-06] MEDS ORDERED: CEPH-588 PO (23:51)
--- NOTE | 2021-06-06 23:54 | NUR ---
pt arrived with 18fr trimble catheter w/ leg bag, and in severe pain urine bag is discolored with moderates amount of urine. trimble removed and replaced with 18fr trimble catheter per Dr. Ovalle's order. urine draining cloudy, yellow, foul smelling urine. urine POC done and results given to Dr. Ovalle. Pt tolerated procedure well and have stated 0/10 pain after new trimble reinsertion.
[2021-06-07 00:18] VITALS: BP 132/69
--- NOTE | 2021-06-07 00:18 | NUR ---
400cc of urine drained after new catheter insertion.
--- NOTE | 2021-06-07 00:20 | NUR ---
Patient discharged with v/s stable. Written and verbal after care instructions given and explained. Patient alert, oriented and verbalized understanding of instructions. Ambulatory with steady gait. All questions addressed prior to discharge. ID band removed. Patient advised to follow up with PMD. Rx of KEFLEX given. Patient educated on indication of medication including possible reaction and side effects. Opportunity to ask questions provided and answered. PT DISCHARGE WITH 18G PARK CATHETER W/ LEG BAG SECURED TO RIGHT LEG. POSITIVE URINE DRAINING.INSTRUCTIONS INCLUDE CATHETER CARE.
== END 2021-06-07 00:19 | disposition home or self-care (01) ==
LOC: MED 21:31
DX: R33.9 Retention of urine, unspecified (principal); Z46.6 Encounter for fitting and adjustment of urinary device; Z88.0 Allergy status to penicillin; Z79.899 Other long term (current) drug therapy; Z87.442 Personal history of urinary calculi
CPT/HCPCS: 51702; 96372; 96374; 99284; J2270; J2405

== ENCOUNTER 2021-08-12 03:50 | Emergency (ER) | payer OTHER ==
[~2021-08-12] VITALS: Ht 182.9 cm; Wt 69.9 kg
[~2021-08-12 03:50] MED LIST changes: +CEPH-588 PO
[2021-08-12 03:57] VITALS: BP 143/109
--- NOTE | 2021-08-12 04:01 | NUR ---
Patient ambulated to bed 8.
--- NOTE | 2021-08-12 04:02 | NUR ---
Dr. Kaye examming patient.
--- NOTE | 2021-08-12 05:10 | NUR ---
UA SAMPLE COLLECTED. TOLERATED WELL.
--- NOTE | 2021-08-12 05:13 | NUR ---
66R Y/O MALE BIB SELF FOR URINARY RENTENTION. PT HAS A PARK PUT IN X1 MONTH AGO . PT HAD URINARY RETENTION AND FELT BLOATED. PT HAD 400 ML URINE DRAINED. PT PARK WAS DETORIATING. DENIES N/V/D; SKIN IS PINK/WARM/DRY; AAOX4 WITH EVEN AND STEADY GAIT; LUNGS CLEAR BL; HR EVEN AND REGULAR; PT DENIES ANY FEVER, CP, SOB, OR COUGH AT THIS TIME; PATIENT STATES PAIN OF 0/10 AT THIS TIME; VSS; PATIENT POSITIONED FOR COMFORT; HOB ELEVATED; BEDRAILS UP X2; BED DOWN. ER MD MADE AWARE OF PT STATUS.
[2021-08-12 05:39] LABS: APPEARANCE,URINE CLEAR (CLEAR); BILIRUBIN,URINE NEGATIVE (NEGATIVE); BLOOD, URINE 2+ (NEGATIVE); COLOR,URINE YELLOW (YELLOW); LEUKOCYTE ESTERASE ,URINE 3+ (NEGATIVE); NITRITE, URINE NEGATIVE (NEGATIVE); UGLUCOSE NEGATIVE (NEGATIVE)
[2021-08-12 05:45] LABS: RBC,URINE 0-5 /HPF (0-5)
[2021-08-12 05:46] LABS: WBC,URINE TOO MANY TO COUNT /HPF (0-5)
[2021-08-12] MEDS ORDERED: CIPR500T4 PO (05:54)
--- NOTE | 2021-08-12 06:00 | NUR ---
CALLED [facility] PER PATIENT REQUEST FOR AN UBER RIDE.
[2021-08-12 06:05] VITALS: BP 139/98
--- NOTE | 2021-08-12 06:05 | NUR ---
The patient's care was reviewed and supervised by Aletha Orozco RN.
--- NOTE | 2021-08-12 06:05 | NUR ---
Patient discharged with v/s stable. Written and verbal after care instructions given and explained. Patient alert, oriented and verbalized understanding of instructions. Ambulatory with steady gait. All questions addressed prior to discharge. ID band removed. Patient advised to follow up with PMD. Rx of CIPRO given. Patient REVIEWED on indication of medication including possible reaction and side effects. Opportunity to ask questions provided and answered. PER SEM MANAGER, DAVID BO WILL ARRIVE IN APPROXIMATELY 18 MINUTES.
== END 2021-08-12 06:05 | disposition home or self-care (01) ==
LOC: MED 03:50
DX: T83.091A Other mechanical complication of indwelling urethral catheter, initial encounter (principal); N39.0 Urinary tract infection, site not specified; Z79.899 Other long term (current) drug therapy; Z88.0 Allergy status to penicillin
CPT/HCPCS: 51702; 81001; 87086; 99284

== ENCOUNTER 2021-11-12 02:49 | Emergency (ER) | payer OTHER ==
[~2021-11-12] VITALS: Ht 182.9 cm; Wt 68.0 kg
[2021-11-12 02:53] VITALS: BP 155/106
--- NOTE | 2021-11-12 02:57 | NUR ---
pt to bed 12
--- NOTE | 2021-11-12 02:58 | NUR ---
Oli moscoso in [facility] - 11/12/21 at 0258 by KIEL PT TAKEN TO BED 12
--- NOTE | 2021-11-12 03:31 | NUR ---
Dr. Hammond examining patient.
--- NOTE | 2021-11-12 03:39 | NUR ---
# 16 FR Sumner catheter with 10 ml utilizing sterile technique. Immediate return of 300 ml yellow urine noted. Bedside drainage bag placed below level of bladder. Urine sample collected and sent to lab. Pt tolerated procedure well. pt vocalized immediate relief.
[2021-11-12] MEDS ORDERED: CIPR500T4 PO (03:43)
--- NOTE | 2021-11-12 03:45 | NUR ---
66 yo m bib self with c/c of clogged f/c x2-3hrs. pt states he has not urinated for a few hours and reports lower abd pain 10/10. pt states he has had an indwelling cath for about 1yr for large bladder stone. denies fever and chills denies hx, rx and allergies
[2021-11-12 03:52] VITALS: BP 155/106
== END 2021-11-12 03:52 | disposition home or self-care (01) ==
LOC: MED 02:49
DX: N39.0 Urinary tract infection, site not specified (principal); Z46.6 Encounter for fitting and adjustment of urinary device; Z88.0 Allergy status to penicillin; Z79.899 Other long term (current) drug therapy; Z87.442 Personal history of urinary calculi
CPT/HCPCS: 51702; 81002; 99284

== ENCOUNTER 2021-12-24 09:33 | Emergency (ER) | payer OTHER ==
[~2021-12-24] VITALS: Ht 172.7 cm; Wt 74.8 kg
[2021-12-24 09:56] VITALS: BP 139/80
--- NOTE | 2021-12-24 10:00 | NUR ---
PT C/O URINARY RETENTION SINCE LAST NIGHT, STATES CATHETER FELL OUT. 16 F F/C PLACED. 350ML APPROX URINE OUT.
[2021-12-24 10:48] VITALS: BP 122/70
== END 2021-12-24 10:48 | disposition home or self-care (01) ==
LOC: MED 09:33
DX: R33.9 Retention of urine, unspecified (principal); F17.200 Nicotine dependence, unspecified, uncomplicated; Z87.442 Personal history of urinary calculi; Z88.0 Allergy status to penicillin; Z71.6 Tobacco abuse counseling
CPT/HCPCS: 99281

== ENCOUNTER 2022-01-16 00:36 | Emergency (ER) | payer OTHER ==
[~2022-01-16] VITALS: Ht 182.9 cm; Wt 68.0 kg
[2022-01-16 00:40] VITALS: BP 140/86
--- NOTE | 2022-01-16 00:40 | NUR ---
NOÉ POST TO BED #5
--- NOTE | 2022-01-16 00:41 | NUR ---
Patient BIB by [facility]. C/O urinary retention x today. Patient reported, his trimble 's cath came out, and urinary retention today, last urinate ~ 4-5 hours ETA. PMHx: Kidney/bladder stone.
--- NOTE | 2022-01-16 00:49 | NUR ---
Dr. Lo examining patient.
--- NOTE | 2022-01-16 01:10 | NUR ---
# 16 FR Sumner catheter with 10 ml utilizing sterile technique. Immediate return of 400 ml yellow, cloudy urine noted. Bedside drainage bag placed below level of bladder. Urine sample collected and sent to lab. Pt tolerated procedure fair.
[2022-01-16 01:49] VITALS: BP 128/76
== END 2022-01-16 01:49 | disposition home or self-care (01) ==
LOC: MED 00:36
DX: T83.098A Other mechanical complication of other urinary catheter, initial encounter (principal); R33.9 Retention of urine, unspecified; F17.210 Nicotine dependence, cigarettes, uncomplicated; Z87.448 Personal history of other diseases of urinary system; Z98.890 Other specified postprocedural states; Z79.2 Long term (current) use of antibiotics; Z79.899 Other long term (current) drug therapy; Z88.0 Allergy status to penicillin; Y84.6 Urinary catheterization as the cause of abnormal reaction of the patient, or of later complication, without mention of misadventure at the time of the procedure
CPT/HCPCS: 51702; 99284

== ENCOUNTER 2022-03-19 18:02 | Emergency (ER) | payer OTHER ==
[~2022-03-19] VITALS: Ht 182.9 cm; Wt 68.0 kg
--- NOTE | 2022-03-19 18:10 | NUR ---
BIBA to bed 08.
[2022-03-19 18:11] VITALS: BP 144/100
--- NOTE | 2022-03-19 18:15 | NUR ---
66/M [facility]IB[facility] from [facility] c/o Sumner catheter pain x 1-2 hrs. Per EMS, patient emptied catheter this morning and c/o urinary retention since this morning. Pt states no urinary output today. 12/29 burning/constant, non-radiating pain. EMS noted pt with trigeminy on tube cleaner. Denies CP, SOB, cough, fever, chills, abdominal pain. 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 HR 69 palpated, irregularly irregular rate. Bed locked in lowest position, side rails x 1. PMH: HTN Meds: Denies Allergies: PCN
--- NOTE | 2022-03-19 18:33 | NUR ---
BP recheck 81/35. Dr. Lo made aware.
--- NOTE | 2022-03-19 18:39 | NUR ---
Dr. Lo evaluating pt at bedside
--- NOTE | 2022-03-19 19:10 | NUR ---
# 16 FR Sumner catheter with 10 ml utilizing sterile technique. Immediate return of 250 ml yellow/cloudy urine noted. Bedside drainage bag placed below level of bladder. Urine sample collected and sent to lab. Pt tolerated procedure well.
--- NOTE | 2022-03-19 19:18 | NUR ---
Report and transfer of care endorsed to SYD Dumont.
--- NOTE | 2022-03-19 19:19 | NUR ---
MADHURI walked to lab and handed to CPT. Betsy
[2022-03-19 19:33] LABS: APPEARANCE,URINE CLOUDY (CLEAR); BILIRUBIN,URINE NEGATIVE (NEGATIVE); BLOOD, URINE 1+ (NEGATIVE); COLOR,URINE ORANGE (YELLOW); LEUKOCYTE ESTERASE ,URINE 3+ (NEGATIVE); NITRITE, URINE NEGATIVE (NEGATIVE); PH,URINE 8.5 (5.0-9.0); UGLUCOSE NEGATIVE (NEGATIVE)
[2022-03-19 19:56] LABS: WBC,URINE 16-25 (MOD) /HPF (0-5)
--- NOTE | 2022-03-19 20:04 | NUR ---
Dr. Lo examining patient.
[2022-03-19] MEDS ORDERED: NACL 0.9% 1,000 ML IV ONE ×2 (20:10→21:05)
[2022-03-19] MEDS ORDERED: LEVOFLOXACIN 750 MG/D5W PREMIX 150 ML IV ONE (20:20)
[2022-03-19 20:22] VITALS: BP 171/100
[2022-03-19 20:24] LABS: BASOPHILS # (AUTO) 0.1 K/uL (0.00-0.22); BASOPHILS % (AUTO) 1.1 % (0.0-2.0); EOSINOPHILS # (AUTO) 0.1 K/uL (0-0.4); EOSINOPHILS % (AUTO) 1.8 % (0.0-4.0); HEMATOCRIT 40.2 % (36-52); HEMOGLOBIN 13.4 g/dL (12.0-18.0); LYMPHOCYTES # (AUTO) 0.9 K/uL (2.0-11.5); LYMPHOCYTES % (AUTO) 11.4 % (20.5-51.1); MEAN CORPUSCULAR HEMOGLOBIN 31 pg (27-31); MEAN CORPUSCULAR HGB CONC 33 g/dL (33-37); MEAN CORPUSCULAR VOLUME 92.2 fL (80-94); MONOCYTES # (AUTO) 0.5 K/uL (0.8-1.0); MONOCYTES % (AUTO) 6.9 % (1.7-9.3); NEUTROPHILS # (AUTO) 5.9 K/uL (1.8-7.7); NEUTROPHILS % (AUTO) 78.8 % (42.2-75.2); PLATELET COUNT (AUTO) 283 K/uL (140-450); RED BLOOD CELL COUNT(AUTO) 4.36 MIL/uL (4.20-6.10); RED CELL DISTRIBUTION WIDTH 15.7 % (11.6-13.7); WHITE BLOOD COUNT (AUTO) 7.5 K/uL (4.8-10.8)
--- NOTE | 2022-03-19 20:51 | NUR ---
Provided blankets as request.
[2022-03-19] MEDS ORDERED: LEVO-481 PO (20:52)
[2022-03-19 20:53] LABS: ALBUMIN 3.5 g/dL (3.4-5.0); ANION GAP 14.4 (8-16); CARBON DIOXIDE 23.4 mmol/L (21-32); CREATININE 2.6 mg/dL (0.6-1.3); POTASSIUM 4.8 mmol/L (3.5-5.1); TOTAL BILIRUBIN 0.4 mg/dL (0.0-1.0)
--- NOTE | 2022-03-19 21:40 | NUR ---
Provided sandwiches and juice as request.
[2022-03-19 22:42] LABS: ANION GAP 12.4 (8-16); CARBON DIOXIDE 24.1 mmol/L (21-32); CREATININE 2.5 mg/dL (0.6-1.3); POTASSIUM 4.5 mmol/L (3.5-5.1)
--- NOTE | 2022-03-19 23:38 | NUR ---
Pt to be discharged with trimble catheter
--- NOTE | 2022-03-20 00:09 | NUR ---
Called executive housekeeper to arrange [employer] for patient.
--- NOTE | 2022-03-20 00:23 | NUR ---
Patient discharged with v/s stable. Written and verbal after care instructions given and explained. Patient verbalized understanding. Ambulatory with steady gait. All questions addressed prior to discharge. Advised to follow up with PMD. Pt d/c with trimble catheter Addendum: 03/20/22 at 0024 by [email or web address] Pt was also discharged with a prescription of levofloxacin
[2022-03-23] MEDS ORDERED: NITR50CA1 PO (08:04)
--- NOTE | 2022-03-23 09:26 | NUR ---
LATE ENTRY. RECEIVED POSITIVE URINE RESULTS. FORM GIVEN TO DR CUELLAR. NEW RX OF NITROFURANTOIN SENT TO [facility]. FORM PLACED IN CHART. ATTEMPTED TO CONTACT PT, INVALID NUMBER.
== END 2022-03-20 00:23 | disposition home or self-care (01) ==
LOC: MED 18:02
DX: T83.018A Breakdown (mechanical) of other urinary catheter, initial encounter (principal); R33.9 Retention of urine, unspecified; N39.0 Urinary tract infection, site not specified; F17.210 Nicotine dependence, cigarettes, uncomplicated; Z88.0 Allergy status to penicillin; Z98.890 Other specified postprocedural states; Z79.899 Other long term (current) drug therapy; Y84.8 Other medical procedures as the cause of abnormal reaction of the patient, or of later complication, without mention of misadventure at the time of the procedure
CPT/HCPCS: 36415; 51702; 80048; 80053; 81001; 83605; 85025; 87040; 87086; 96365; 99285; J1956; 99284

== ENCOUNTER 2022-04-29 02:30 | Emergency (ER) | payer OTHER ==
[~2022-04-29] VITALS: Ht 182.9 cm; Wt 68.0 kg
[~2022-04-29 02:30] MED LIST changes: +LEVO-481 PO; +NITR50CA1 PO
[2022-04-29 02:35] VITALS: BP 171/99
--- NOTE | 2022-04-29 02:35 | NUR ---
Patient BIB by BLS. C/O Sumner's cath dislodged x today. Patient taken to bed 2.
[2022-04-29 02:40] VITALS: BP 171/99
--- NOTE | 2022-04-29 02:44 | NUR ---
66 Y/O M presents with low abdomen pain 11/29 due to trimble coming out pt is requesting a new trimble. pt denies any NVD. pt is A&Ox4, skin intact. PMH-pt denies allergies-penicillins
--- NOTE | 2022-04-29 02:44 | NUR ---
Dr. Santizo at bedside
--- NOTE | 2022-04-29 02:52 | NUR ---
Lab at bedside
[2022-04-29 02:56] LABS: BASOPHILS # (AUTO) 0.1 K/uL (0.00-0.22); BASOPHILS % (AUTO) 0.8 % (0.0-2.0); EOSINOPHILS # (AUTO) 0.2 K/uL (0-0.4); EOSINOPHILS % (AUTO) 2.1 % (0.0-4.0); HEMATOCRIT 41.4 % (36-52); HEMOGLOBIN 13.9 g/dL (12.0-18.0); LYMPHOCYTES # (AUTO) 0.9 K/uL (2.0-11.5); LYMPHOCYTES % (AUTO) 8.9 % (20.5-51.1); MEAN CORPUSCULAR HEMOGLOBIN 31 pg (27-31); MEAN CORPUSCULAR HGB CONC 33 g/dL (33-37); MEAN CORPUSCULAR VOLUME 92.9 fL (80-94); MONOCYTES # (AUTO) 0.6 K/uL (0.8-1.0); MONOCYTES % (AUTO) 6.2 % (1.7-9.3); NEUTROPHILS # (AUTO) 7.9 K/uL (1.8-7.7); PLATELET COUNT (AUTO) 308 K/uL (140-450); RED BLOOD CELL COUNT(AUTO) 4.46 MIL/uL (4.20-6.10); WHITE BLOOD COUNT (AUTO) 9.6 K/uL (4.8-10.8)
--- NOTE | 2022-04-29 03:14 | NUR ---
Dr. Santoyo at bedside
[2022-04-29 03:32] LABS: ANION GAP 12.6 (8-16); CREATININE 2.8 mg/dL (0.6-1.3); POTASSIUM 4.6 mmol/L (3.5-5.1)
--- NOTE | 2022-04-29 04:01 | NUR ---
pt is resting with food at bedside
--- NOTE | 2022-04-29 04:38 | NUR ---
The patient's care was reviewed and supervised by Aletha Orozco RN.
== END 2022-04-29 04:37 | disposition home or self-care (01) ==
LOC: MED 02:30
DX: N18.9 Chronic kidney disease, unspecified (principal); T83.028A Displacement of other urinary catheter, initial encounter; Z88.0 Allergy status to penicillin
CPT/HCPCS: 36415; 51702; 80048; 85025; 99284

== ENCOUNTER 2022-06-09 06:50 | Emergency (ER) | payer OTHER ==
[~2022-06-09] VITALS: Ht 172.7 cm; Wt 68.0 kg
[2022-06-09 07:02] VITALS: BP 177/107
--- NOTE | 2022-06-09 07:10 | NUR ---
Pt was in [address] at [facility]. Pt claim that he has clog urine catheter and has pain 10/10. Pt is homeless and alert and oriented x4.
--- NOTE | 2022-06-09 07:10 | NUR ---
Pt biba into bed 5, pt was in [address] at [facility]. Pt claim that he has clog urine catheter and has pain 10/.
[2022-06-09 09:30] VITALS: BP 138/76
--- NOTE | 2022-06-09 10:06 | NUR ---
PARK CATHETER REPLACED, DRAINING WELL TO LEG BAG. PT GOT DRESSED, ATE A SANDWICH AND AMBULATED STEADY AND INDEPENDENT TO WAITING ROOM
--- NOTE | 2022-06-09 11:18 | NUR ---
Patient discharged with v/s stable. Written and verbal after care instructions given and explained. Patient verbalized understanding. Ambulatory with steady gait. All questions addressed prior to discharge. Advised to follow up with PMD.LEG BAG IN PLACE [employer]
== END 2022-06-09 09:30 | disposition home or self-care (01) ==
LOC: MED 06:50
DX: R33.9 Retention of urine, unspecified (principal); N21.0 Calculus in bladder; N20.0 Calculus of kidney; F17.200 Nicotine dependence, unspecified, uncomplicated; Z88.0 Allergy status to penicillin; Z79.899 Other long term (current) drug therapy; Z98.890 Other specified postprocedural states
CPT/HCPCS: 51702; 99284